=== PATIENT | male | born 1985 | race Caucasian/White ===

== ENCOUNTER 2019-04-18 21:57 | Emergency (ER) | payer OTHER ==
[~2019-04-18] VITALS: Ht 172.7 cm; Wt 72.6 kg
[~2019-04-18 21:57] MED LIST: ACCUNEB SO1.25 MG/1; ALBUTEROL2.5 MG/31 INH; CIPROFLOXIN HC2.5 M1 OPHTHALMIC; CLEOCIN HCL150 MG PO; HYDROCODON-ACE1 EACH PO; HYDROCODONE-APA1 TA1 PO; IBUPROFEN 800800 MG PO; KEFLEX500 MG PO; LORTABELXR PO; MEDROLDOSEPACK PO; NOHOMEMEDICATIONS; NORCO 5-325 TA1 EACH PO; PREDNISONE 20 M20 M1 PO; TOBREX3.5 GM OP; VALTREX 500 MG500 M1 PO; VENTOLIN HFA 1818 GM INH; VICODIN 5-5001 EACH PO; ZOFRAN ODT4 MG PO; ZPAK PO
[2019-04-18 22:36] LABS: ABSOLUTE BASOPHILS 0.2 thou/uL (0.0-0.2); ABSOLUTE EOSINOPHILS 0.1 thou/uL (0.0-0.7); ABSOLUTE LYMPHOCYTES 1.7 thou/uL (0.8-5.3); ABSOLUTE MONOCYTES 1.1 thou/uL (0.0-1.2); ABSOLUTE NEUTROPHILS 14.3 thou/uL (1.6-8.1); EOSINOPHILS 0.4 %; HEMATOCRIT 48.4 % (42.0-52.0); HEMOGLOBIN 16.8 gm/dL (14.0-18.0); MCH 31.1 pg (26.0-34.0); MCHC 34.7 g/dL (28.0-37.0); MCV 89.5 fL (80.0-100.0); MONOCYTES 6.4 %; MPV 10.1 fl. (7.2-11.1); NUCLEATED RBCS 0 /100WBC; PLATELET COUNT* 286 thou/uL (150-400); POLYS 82.2 %; RDW-CV 13.4 % (10.5-14.5); WBC 17.4 thou/uL (4.0-11.0)
[2019-04-18 22:48] LABS: CALCIUM 10.3 mg/dL (8.5-10.1); CREATININE 1.2 mg/dL (0.6-1.3); POTASSIUM 3.8 mmol/L (3.5-5.1)
[2019-04-18 22:52] LABS: ALBUMIN 4.6 g/dL (3.4-5.0); TOTAL BILIRUBIN 1.9 mg/dL (<0.1-1.0); TOTAL PROTEIN 8.6 g/dL (6.4-8.2)
[2019-04-18 23:34] LABS: URINE BILIRUBIN 2+ (Negative); URINE BLOOD NEGATIVE (Negative); URINE CLARITY CLEAR; URINE COLOR YELLOW; URINE GLUCOSE-RANDOM NEGATIVE (Negative); URINE KETONES 3+ (Negative); URINE LEUKOCYTES-REFLEX NEGATIVE (Negative); URINE NITRITE-REFLEX NEGATIVE (Negative); URINE PROTEIN NEGATIVE (Negative); URINE SPECIFIC GRAVITY 1.025 (1.005-1.030); URINE UROBILINOGEN 0.2 E.U./dl (0.2-1.0)
[2019-04-18 23:36] LABS: ICTOTEST (BILI CONFIRMATORY) Negative (Negative)
[2019-04-19] MEDS ORDERED: ZOFRAN ODT4 MG PO (01:59)
[2019-04-19] MEDS ORDERED: CIPROFLOXACIN500 M1 PO (01:59)
[2019-04-19] MEDS ORDERED: ACETAMINOPHEN-1 EAC2 PO (01:59)
[2019-04-19 02:20] VITALS: BP 96/59
== END 2019-04-19 02:20 | disposition home or self-care (01) ==
LOC: M.ERS 21:57
PROVIDERS: Personal Emergency Response Attendant
DX: K52.9 Noninfective gastroenteritis and colitis, unspecified (principal); J45.909 Unspecified asthma, uncomplicated; Z88.0 Allergy status to penicillin; Z91.018 Allergy to other foods

== ENCOUNTER 2019-06-26 19:51 | Emergency (ER) | payer OTHER ==
[~2019-06-26] VITALS: Ht 172.7 cm; Wt 74.8 kg
[~2019-06-26 19:51] MED LIST changes: +ACETAMINOPHEN-1 EAC2 PO; +CIPROFLOXACIN500 M1 PO
[2019-06-26] MEDS ORDERED: NABUMETONE 750750 M1 PO (21:08)
[2019-06-26] MEDS ORDERED: ROBAXIN 750 MG750 MG PO (21:08)
[2019-06-26 21:20] VITALS: BP 128/86
== END 2019-06-26 21:22 | disposition home or self-care (01) ==
LOC: M.ERS 19:51
DX: S42.001A Fracture of unspecified part of right clavicle, initial encounter for closed fracture (principal); S43.51XA Sprain of right acromioclavicular joint, initial encounter; J45.909 Unspecified asthma, uncomplicated; Z88.0 Allergy status to penicillin; Z91.018 Allergy to other foods; X58.XXXA Exposure to other specified factors, initial encounter; Y93.89 Activity, other specified; Y92.89 Other specified places as the place of occurrence of the external cause; Y99.8 Other external cause status